=== PATIENT | male | born 1990 | race Caucasian/White ===

== ENCOUNTER 2017-09-22 13:49 | Emergency (ER) | payer OTHER ==
[2017-09-22 13:53] VITALS: BP 130/77; PULSE 78; RESP 16; TEMP 98.1; O2SAT 98
--- NOTE | 2017-09-22 14:04 | EDPHY ---
H & P Stated Complaint: Fall from snowboard;+helmet: +LOC;sent for CT Time Seen by Provider: 09/22/17 14:04 HPI/ROS: CHIEF COMPLAINT: Closed head injury HISTORY OF PRESENT ILLNESS: The patient is referred to the emergency department for evaluation of a closed head injury. 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 The patient struck his head and reportedly had a loss of consciousness. The patient denies any vomiting or midline neck pain. He was seen at [facility] and referred to the emergency department for a CT scan. The patient does have a history of seizure disorder and is on Keppra. He reports he has had good control of his seizures with this medication. The patient currently rates his headache as a 4/10. The patient denies any acute numbness or weakness. He denies any visual disturbance or additional traumatic complaints. REVIEW OF SYSTEMS: A comprehensive 10 point review of systems is otherwise negative aside from elements mentioned in the history of present illness. Source: Patient - Personal History Current Tetanus Diphtheria and Acellular Pertussis (TDAP): Yes - Medical/Surgical History Hx Asthma: No Hx Chronic Respiratory Disease: No Hx Diabetes: No Hx Cardiac Disease: No Hx Renal Disease: No Hx Cirrhosis: No Hx Alcoholism: No Hx HIV/AIDS: No Hx Splenectomy or Spleen Trauma: No Other PMH: seizures - Social History Smoking Status: Current every day smoker - Physical Exam Exam: General Appearance: Alert, no distress Head: Atraumatic Eyes: Pupils equal, round, reactive ENT, Mouth: No hemotympanum, no oral trauma Neck: Nontender, trachea midline Respiratory: No chest wall tender, subcutaneous air, lungs clear bilaterally Cardiovascular: Regular rate and rhythm Abdomen: Abdomen is soft and nontender, pelvis stable Skin: No lacerations, No abrasion Back: No midline T/L/S pain Extremities: Nontender, full range of motion Neurological: A&Ox3, normal motor function, normal sensory exam Constitutional: Initial Vital Signs Temperature (C) 36.7 C 09/22/17 13:50 Heart Rate 78 09/22/17 13:50 Respiratory Rate 16 09/22/17 13:50 Blood Pressure 130/77 H 09/22/17 13:50 O2 Sat (%) 98 09/22/17 13:50 O2 Delivery Mode Room Air Allergies/Adverse Reactions: No Known Allergies Allergy (Verified 09/22/17 13:50) Home Medications: Medication Instructions Recorded levETIRACETAM [KEPPRA XR 500 mg] 1,000 mg PO DAILY #0 tab.sr.24h 03/30/16 Medical Decision Making - Diagnostics Imaging Results: Head CT without contrast: Images reviewed by myself and discussed with radiologist, negative for acute intracranial hemorrhage or skull fracture. ED Course/Re-evaluation: The patient presents to the ED for evaluation of closed head injury. The patient did have a loss of consciousness and continues to have a persistent headache following history which occurred at 9 o'clock this morning. The patient was taken for noncontrast CT scan of the head which demonstrates no evidence of an acute fracture or intracranial hemorrhage. The patient does have symptoms of a mild concussion. He will be discharged home with customary concussion aftercare instructions. Differential Diagnosis: Differential diagnosis considered includes intracranial hemorrhage, concussion, skull fracture Departure - Departure Disposition: Home, Routine, Self-Care Clinical Impression: Concussion Condition: Good Instructions: Concussion (ED) Additional Instructions: 1. Take Ibuprofen or Motrin 600 mg by mouth three times a day. 2. Return to the ED for markedly worsening headache, numbness, weakness, seizure or other concerns. 3. Concussion aftercare as directed - you have been given the contact number of our on-call concussion specialist Dr. Deluna for any persistent symptoms 4. Your head CT scan demonstrates no evidence of an intracranial hemorrhage or skull fracture. Referrals: Brie Deluna MD [Medical Doctor] - As per Instructions
== END 2017-09-22 15:06 | disposition home or self-care (01) ==
DX: S06.0X0A Concussion without loss of consciousness, initial encounter (principal); F17.200 Nicotine dependence, unspecified, uncomplicated; V00.311A Fall from snowboard, initial encounter; Y99.8 Other external cause status; Y93.23 Activity, snow (alpine) (downhill) skiing, snowboarding, sledding, tobogganing and snow tubing